=== PATIENT | female | born 1970 | race Caucasian/White ===

== ENCOUNTER 2017-08-23 18:19 | Observation (INO) | payer OTHER ==
[~2017-08-23] VITALS: Ht 162.6 cm; Wt 51.7 kg
--- NOTE | 2017-08-23 18:41 | ED GENERAL ADULT ---
History of Present Illness General Chief Complaint: General Adult Stated Complaint: PT WAS SIB DR FOR BLOOD TRANSFUSION Source: patient Exam Limitations: no limitations Vital Signs & Intake/Output Vital Signs & Intake/Output Vital Signs Date Time Temp Pulse Resp B/P B/P Pulse O2 O2 Flow FiO2 Mean Ox Delivery Rate 08/23 2004 98.0 93 16 108/66 100 Room Air 08/23 1828 98.6 102 21 117/79 97 Room Air Allergies Uncoded Allergies: Allergy Other SHELLFISH,DOGS,DUST,MOLD POLLENS Med Allergies SULFA DRUGS Triage Note: PT TO ED FOR ANEMIA, PT STATING SHE HAD A HEAVY PROLONGED PERIOD STARTING 07/18/17 - 08/10/17, PT STATING SHE WAS BEING SEEN BY HER OB OUTPATIENT AND HAD LABS DONE YESTERDAY "AND HEMOGLOBIN WAS 4.8". PT REPORTING WORSENING SOB, PINK, FATIGUE AND NAUSEA. Triage Nurses Notes Reviewed? yes Onset: Gradual Duration: week(s): (few) Timing: recent history Injury Environment: home Severity: moderate, severe Modifying Factors: Worsens With: movement. Associated Symptoms: dyspnea HPI: 47 year old female presents from home for weakness, sob with exertion and was found to be profoundly anemic. She was sent to the ER for 4 units of blood. Patient reports vaginal bleeding from July 18- but is no longer bleeding. No chest pain. She is taking a daily iron supplement. (Kiarra Regalado MD) Past History Travel History Traveled to [place] past 21 day No Medical History Any Pertinent Medical History? see below for history Neurological: NONE EENT: NONE Cardiovascular: NONE Respiratory: NONE Gastrointestinal: NONE Hepatic: NONE Renal: NONE Musculoskeletal: NONE Psychiatric: NONE Endocrine: NONE Blood Disorders: NONE Cancer(s): NONE Surgical History Surgical History: Psychosocial History What is your primary language Croatian Tobacco Use: Never used ETOH Use: denies use Illicit Drug Use: denies illicit drug use Family History Hx Contributory? No (Kiarra Regalado MD) Review of Systems Review of Systems Constitutional: Denies: chills, fever. EENTM: Reports: no symptoms. Respiratory: Denies: cough, short of breath. Cardiovascular: Denies: chest pain, palpitations. GI: Denies: abdominal pain. Genitourinary: Denies: discharge, dysuria, frequency, hematuria. Musculoskeletal: Reports: no symptoms. Skin: Reports: no symptoms. Neurological/Psychological: Reports: no symptoms. Hematologic/Endocrine: Denies: bruising, bleeding, polyuria, polydipsia. Immunologic/Allergic: Denies: splenectomy. All Other Systems: Reviewed and Negative (Kiarra Regalado MD) Physical Exam Physical Exam General Appearance: well developed/nourished, alert, awake, anxious Head: atraumatic, normal appearance, active bleeding Eyes: Bilateral: normal appearance, PERRL, EOMI. Ears, Nose, Throat: normal pharynx, hearing grossly normal Neck: normal inspection, supple, full range of motion Respiratory: normal breath sounds, chest non-tender, no respiratory distress Cardiovascular: regular rate/rhythm, normal peripheral pulses Peripheral Pulses: 2+ radial (R), 2+ radial (L) Gastrointestinal: normal bowel sounds, soft, non-tender Extremities: normal inspection, normal capillary refill, normal range of motion, no edema Neurologic/Psych: no motor/sensory deficits, awake, alert, oriented x 3 Skin: intact, normal color, warm/dry Core Measures ACS in differential dx? No CVA/TIA Diagnosis: No Sepsis Present: No Sepsis Focused Exam Completed? No (Kiarra Regalado MD) Progress Differential Diagnoses I considered the following diagnoses in my evaluation of the patient: [ SYMPTOMATIC ANEMIA, MENORRHAGIA] Plan of Care: Orders Procedure Date/time Status Place in observation 08/23 2018 Active BLOOD PRODUCT PICKUP 08/23 193 Active LEUKOCYTE POOR (PACKED CELLS) 08/23 1900 Active PARTIAL THROMBOPLASTIN TIME 08/23 183 Complete PROTHROMBIN TIME 08/23 183 Complete HUMAN BETA HCG SCREEN 08/23 1836 Complete COMPREHENSIVE METABOLIC PANEL 08/23 1836 Complete CBC WITHOUT DIFFERENTIAL 08/23 1836 Complete EKG 08/23 1836 Active TYPE & SCREEN (NOT X-MATCH) 08/23 183 Active Laboratory Tests 08/23/17 1842: Anion Gap 14, Estimated GFR > 60, BUN/Creatinine Ratio 12.9, Glucose 105 H, Calcium 9.0, Total Bilirubin 0.2, AST 15, ALT 30, Alkaline Phosphatase 46, Total Protein 6.7, Albumin 4.1, Globulin 2.6, Albumin/Globulin Ratio 1.6, Total Beta HCG NEGATIVE, PT 12.0, INR 1.14, APTT 27, CBC w Diff NO MAN DIFF REQ, RBC 2.42 L, MCV 71.2 L, MCH 21.1 L, RDW 21.4 H, MPV 10.9 H, Gran % 69.3, Lymphocytes % 21.2, Monocytes % 8.9, Eosinophils % 0.3, Basophils % 0.3, Absolute Granulocytes 4.6, Absolute Lymphocytes 1.4, Absolute Monocytes 0.6, Absolute Eosinophils 0, Absolute Basophils 0, PUBS MCHC 29.6 L Initial ED EKG: SINUS TACHY @ 103 BPM Hand-Off Endorsed To: Liam Guerin MD Endorsed Time: 1899 Pending: labs, other (TRANSFUSION/ADMISSION) (Kiarra Regalado MD) Differential Diagnoses I considered the following diagnoses in my evaluation of the patient: Comments: 08/23/2017 7:38:16 PM patient signed out to me by Dr. Regalado at shift stock mover. I have just spoken with Dr. Coles who feels the patient should be admitted to her service and will contact the nursing superviser regarding a bed availability in the [facility]. 08/23/2017 8:24:[address] Coles the patient will be admitted to her service on general medicine floor. Case discussed with case management. (Liam Guerin MD) Departure Departure Disposition: STILL A PATIENT Condition: Stable Clinical Impression Primary Impression: Symptomatic anemia Referrals: Glenys Abreu Departure Forms: Customer Survey General Discharge Information (Kiarra Regalado MD) Observation Note Spoke With: Power Coles MD Patient In: Non-ED OBS Care Area Rationale for Observation: My rational for observation is as follows patient has an extremely low hematocrit and hemoglobin placing her at high risk of weakness, fatigue, dyspnea , syncope and chest pain. I feel she now requires an urgent blood transfusion to reestablish oxygen-carrying capacity and to avoid the above potential adverse consequences. She is a poor candidate for outpatient treatment given the potential adverse consequences and the overall decreased functional capacity she is experiencing at the exertion of outpatient treatment could potentially exacerbate these consequences. (Liam Guerin MD) Critical Care Note Critical Care Note Critical Care Time: 30-74 min (Kiarra Regalado MD) ED Attending Observation Initial Observation Note: I have seen and personally examined PRERNA HERRERA on 08/23/17 at 1912. I agree with the current emergency department documentation. The disposition (admission or discharge) is uncertain at this time, she needs a period of observation for the following reason(s): The ED Nurse caring for this patient has been personally informed as to what the patient is being observed for. (Fabricio YOUSIF,Kiarra)
[2017-08-23 19:06] LABS: ABSOLUTE BASOPHIL COUNT 0 /CUMM (0.0-0.2); ABSOLUTE EOSINOPHIL COUNT 0 /CUMM (0.0-0.7); ABSOLUTE GRANULOCYTE CT 4.6 /CUMM (1.4-6.5); ABSOLUTE LYMPH COUNT 1.4 /CUMM (1.2-3.4); ABSOLUTE MONOCYTE COUNT 0.6 /CUMM (0.10-0.60); BASOPHIL % 0.3 % (0.0-2.0); EOSINOPHIL % 0.3 % (0-5); GRANULOCYTE % 69.3 % (42.2-75.2); MEAN CORPUSCULAR HGB 21.1 PG (27.0-31.0); MEAN CORPUSCULAR HGB CONC 29.6 G/DL (33.0-37.0); MEAN CORPUSCULAR VOLUME 71.2 FL (81.0-99.0); MEAN PLATELET VOLUME 10.9 FL (7.4-10.4); RBC DISTRIBUTION WIDTH 21.4 % (11.5-14.5); WHITE BLOOD CELL COUNT 6.6 /CUMM (4.8-10.8)
[2017-08-23 19:15] LABS: PTT 27 SEC (25-37)
[2017-08-23 19:17] LABS: HEMATOCRIT 17.2 % (37-47)
[2017-08-23 19:23] LABS: PLATELET COUNT 276 /CUMM (130-400); RED BLOOD CELL CT 2.42 /CUMM (4.20-5.40)
--- NOTE | 2017-08-23 21:14 | History & Physical ---
General Information and HPI MD Statement: I have seen and personally examined PRERNA HERRERA and documented this H&P. The patient is a 47 year old F who presented with a patient stated chief complaint of [anemia]. Source of Information: patient Exam Limitations: no limitations History of Present Illness: 47yo, she was seen in office yesterday due to menorrhagia, as per pt, she had heavy vaginal bleeding for 22 days in 07/2017, now bleeding was stopped. U/S in office sheow no structual abnormality, CBC and EMB was done in office, pathology pending. I received a call from lab, pt's H/H 4.03/29. pt c/o she felt fatigue, SOB when exertion. denies chest pain and other issues. Allergies/Medications Allergies: Uncoded Allergies: Allergy Other SHELLFISH,DOGS,DUST,MOLD POLLENS Med Allergies SULFA DRUGS Past History Travel History Traveled to [place] past 21 day No Medical History Neurological: NONE EENT: NONE Cardiovascular: NONE Respiratory: NONE Gastrointestinal: NONE Hepatic: NONE Renal: NONE Musculoskeletal: NONE Psychiatric: NONE Endocrine: NONE Blood Disorders: NONE Cancer(s): NONE PHYSICAL EDUCATION AIDE/Reproductive: NONE Surgical History Surgical History: none (x3), Past Family/Social History Psychosocial History Where do you live? Home Who Do You Live With? spouse, child Smoking Status: Never Smoked ETOH Use: denies use Illicit Drug Use: denies illicit drug use Review of Systems Review of Systems Constitutional: Reports: see HPI. EENTM: Reports: no symptoms. Cardiovascular: Reports: no symptoms. Respiratory: Reports: see HPI. GI: Reports: no symptoms. Genitourinary: Reports: see HPI. Musculoskeletal: Reports: no symptoms. Skin: Reports: no symptoms. Neurological/Psychological: Reports: no symptoms. All Other Systems: Reviewed and Negative Post Menopausal: No Exam & Diagnostic Data Last 24 Hrs of Vital Signs/I&O Vital Signs Date Time Temp Pulse Resp B/P B/P Pulse O2 O2 Flow FiO2 Mean Ox Delivery Rate 08/23 2019 36.8 96 16 107/59 100 Room Air 08/23 2005 36.7 93 16 108/66 100 Room Air 08/23 1828 37.0 102 21 117/79 97 Room Air Physical Exam General Appearance Alert, Oriented X3, Cooperative, No Acute Distress Skin No Rashes Cardiovascular Regular Rate Lungs Clear to Auscultation Abdomen Soft, No Tenderness Neurological Normal Speech Assessment/Plan Assessment: 47yo, anemia, menorrhagia 1. will admit pt, tranfuse 4 U RBC 2. after transfusion, pt may f/u in office As Ranked By This Provider Problem List: 1. Symptomatic anemia Core Measures/Misc (04/27) Acute Coronary Syndrome ACS Diagnosis: No Congestive Heart Failure Congestive Heart Failure Diagnosis No Cerebrovascular Accident CVA/TIA Diagnosis: No VTE (View Protocol) VTE Risk Factors No risk factors No Mechanical VTE Prophylaxis d/t LowRisk-No Interven Req'd No VTE Pharm Prophylaxis d/t LowRisk-No Interven Req'd Sepsis (View protocol) Sepsis Present: No Attending MD Review Statement Attending Statement Attending MD Statement: examined this patient, discussed with family, discussed with nursing
[2017-08-24 08:25] VITALS: BP 102/62
== END 2017-08-24 08:30 ==
LOC: ERH 18:19 → ERHI 20:19
PROVIDERS: Emergency Medicine
DX: D64.9 Anemia, unspecified (principal); R06.02 Shortness of breath; R53.83 Other fatigue; N92.0 Excessive and frequent menstruation with regular cycle
CPT/HCPCS: 86920; 93005; 93010; 99291; P9016

== ENCOUNTER → 2017-09-03 | Day surgery (SDC) | payer OTHER ==
[~2017-09-03] VITALS: Ht 162.6 cm; Wt 51.7 kg
--- NOTE | 2017-09-03 16:17 | Operative Report ---
Operative/Inv Procedure Report Surgery Date: 09/03/17 Name of Procedure: Hysteroscopy D&C and NovaSure endometrial ablation Pre-Operative Diagnosis: Menometrorrhagia Post-Operative Diagnosis: Same pathology pending Estimated Blood Loss: less than 50ml Surgeon/Tractor Operator Laser Leveling: Betina Huff MD Anesthesia: local monitored anesthesi Specimens: EMC Complications: None Condition: Stable Operative Indication: The patient is a 47-year-old para 4 with menometrorrhagia for the last 3 months. The patient developed anemia that required a transfusion of 4 units of packed red blood cells. She is currently taking an OCP taper to help control the bleeding. She declines further medical management and elects to have an endometrial ablation. Operative/Procedure Note Note: The patient was taken to the operating room and placed in the dorsal supine position. Anesthesia was then obtained without difficulty. She was then placed in dorsal lithotomy position and prepped and draped in the usual sterile fashion. A sterile speculum was then placed in the patient's vagina. A single- tooth tenaculum was applied to the anterior lip of the cervix. The cervix was then serially dilated to accommodate the diagnostic hysteroscope with the findings noted previously. The hysteroscope was then removed and gentle curettage was performed to remove the thickened tissue of the anterior wall. The uterus was then measured for the NovaSure ablation. The NovaSure device was then inserted into the uterine cavity to the fundus. Per the protocol the NovaSure device was activated and the ablation was performed in the usual fashion without complications. The NovaSure was removed from the patient's uterus. All instruments were then removed from the patient's vagina. Excellent hemostasis was noted. A small amount of endometrial tissue was sent to pathology. All counts were reported to be correct 2. The patient was taken to the recovery room in stable condition. Findings: Normal size uterus with normal ostia noted bilaterally. Polypoid tissue was noted on the anterior wall which was sharply removed with a curet and sent to pathology. Discharge Disposition: Same Day Admissions
== END ==
LOC: STS 05:06
DX: N92.1 Excessive and frequent menstruation with irregular cycle (principal); D50.0 Iron deficiency anemia secondary to blood loss (chronic)
CPT/HCPCS: 81025; J2250